=== PATIENT | female | born 1965 | race Caucasian/White ===

== ENCOUNTER → 2018-08-03 | Outpatient (CLI) | payer OTHER ==
--- NOTE | 2018-08-03 11:51 | RAD ---
EXAM DESCRIPTION: Abdomen Flat Upright CLINICAL HISTORY: ABD PAIN COMPARISON: None. TECHNIQUE: AP supine and upright abdomen FINDINGS: The bowel gas pattern is unremarkable. No evidence of free intraperitoneal air is seen. No organomegaly is detected. No pathologic calcifications are observed. IMPRESSION: Normal abdomen. Electronically signed by: Peewee Guardado MD 08/03/2018 11:49 AM [facility]
== END ==
LOC: LAB.O 10:21
PROVIDERS: ATTEND Nurse Practitioner Family
DX: R10.9 Unspecified abdominal pain (principal)

== ENCOUNTER 2020-09-27 10:42 | Emergency (ER) | payer OTHER ==
[2020-09-27] MEDS ORDERED: PROMETHAZINE HCL INJ 25 MG in SODIUM CHLORIDE 0.9% 50ML 50 ML IVPB ONE (11:00)
--- NOTE | 2020-09-27 11:23 | RAD ---
EXAM DESCRIPTION: Forearm,Right CLINICAL HISTORY: suspect fracture after fall COMPARISON: None. IMPRESSION: 2 views of the right forearm show comminuted intra-articular fracture of the distal radius with one half shaft width dorsal and proximal displacement of the distal fracture fragment. Fracture extends to the articular surface. Consider further evaluation with 3 views of the right wrist for more detailed evaluation of the fracture. Suspect mildly displaced ulnar styloid avulsion fracture is well. No fracture or dislocation of the proximal forearm. Electronically signed by: Brannon Casey MD 09/27/2020 11:22 AM [facility]
[2020-09-27] MEDS ORDERED: LIDOCAINE 1% 50 ML VIAL INJ ONE (11:36)
--- NOTE | 2020-09-27 13:24 | RAD ---
EXAM DESCRIPTION: Wrist,Right 3 Views CLINICAL HISTORY: 55 years, Female, post reduction COMPARISON: Previous x-rays of the right forearm earlier same day FINDINGS: Right wrist 3 x-ray views is positive for comminuted impacted fracture of the distal radial metaphysis and epiphysis with fracture through the ulnar styloid base. Markedly improved alignment compared to previous study. Dorsal tilt of the radial articular surface approximately 30 degrees. The lunate and radial articular surface remain aligned. Fracture extends into the radiocarpal joint. Cast material obscures bony detail. Carpal relationships are well-maintained. Distal radius and ulna appear intact. Normal metacarpals. No significant arthritic changes are observed. IMPRESSION: Improved fracture alignment on casted views of the right wrist Electronically signed by: Demetrio Marques MD 09/27/2020 1:22 PM [facility]
--- NOTE | 2020-09-27 13:47 | ED.PDOC ---
History of Present Illness - General Chief Complaint: Trauma Stated Complaint: right arm pain after fall Time Seen by Provider: 09/27/20 10:43 Source: patient Exam Limitations: no limitations - History of Present Illness Initial Comments: The patient is a 55-year-old female presented emergency room secondary to having fallen on outstretched right arm. The patient has a deformity just proximal to the wrist. She does appear to be neurovascularly at her baseline. Radial pulses palpable. She is able to wiggle her fingers. Capillary refill is within normal limits. The patient does rings on the third and fourth digits which she refuses to allow me to remove or cut off. There is no swelling distally at this point. The wound rings are loose except they will not pass the joints. No other injuries. She is in significant pain. She did have something to drink about an hour prior to arrival. Timing/Duration: 1/2 hour Severity: severe Improving Factors: immobilization Worsening Factors: movement Associated Symptoms: denies symptoms Allergies/Adverse Reactions: Allergies Latex Allergy (Verified 09/27/20 10:54) Penicillin G Allergy (Verified 09/27/20 10:54) Home Medications: Ambulatory Orders Levothyroxine Sodium [Synthroid] 0.15 mg PO 0700 05/19/14 Tramadol HCl 50 mg PO Q8HR PRN 7 Days #20 tab 09/27/20 Tramadol HCl 50 mg PO Q8HR PRN 7 Days #20 tab 09/27/20 Review of Systems - Review of Systems Constitutional: States: no symptoms reported EENTM: States: no symptoms reported Respiratory: States: no symptoms reported Cardiology: States: no symptoms reported Gastrointestinal/Abdominal: States: no symptoms reported Genitourinary: States: no symptoms reported Musculoskeletal: States: see HPI Skin: States: no symptoms reported Neurological: States: no symptoms reported Endocrine: States: no symptoms reported All other Systems: No Change from Baseline Past Medical History (General) - Patient Medical History Hx Seizures: No Hx Stroke: No Hx Dementia: No Hx Asthma: No Hx of COPD: No 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% Hx Congestive Heart Failure: No Hx Pacemaker: No Hx Hypertension: Yes Hx Thyroid Disease: Yes - hypo Hx Diabetes: No Hx Gastroesophageal Reflux: No Hx Renal Disease: No Hx Cancer: No Hx of HIV: No Hx Hepatitis C: No Hx MRSA: No - Vaccination History Hx Tetanus, Diphtheria Vaccination: Yes Hx Influenza Vaccination: No Hx Pneumococcal Vaccination: No - Social History Hx Tobacco Use: Yes Hx Chewing Tobacco Use: No Hx Alcohol Use: No Hx Substance Use: No Hx Substance Use Treatment: No Hx Depression: No Hx Physical Abuse: No Hx Emotional Abuse: No Hx Suspected Abuse: No - Female History Patient is a Female of Child Bearing Age (10 -59 yrs old): No Patient : No Family Medical History - Family History Mother Family History: No Known Physical Exam - Physical Exam General Appearance: Alert Eye Exam: bilateral normal Ears, Nose, Throat: hearing grossly normal, normal pharynx Neck: full range of motion, supple Respiratory: lungs clear, normal breath sounds, no respiratory distress, no accessory muscle use Cardiovascular/Chest: normal peripheral pulses, regular rate, rhythm, no edema Peripheral Pulses: radial,right: 2+, radial,left: 2+ Gastrointestinal/Abdominal: non tender, soft Rectal Exam: deferred Extremity: no pedal edema, no calf tenderness, normal capillary refill, other - See history of present illness. Neurologic: backup operator II-XII nml as tested, alert, normal mood/affect, oriented x 3 Skin Exam: normal color Comments: Vital Signs - 24 hr 09/27/20 10:50 Temperature 96.4 F L Pulse Rate [ 86 monitor] Respiratory 22 Rate Blood Pressure 166/90 [LA] O2 Sat by Pulse 99 Oximetry Progress - Progress Progress: 09/27/20 13:48 The patient is a 55-year-old female presented emergency room secondary to having fallen on the right wrist. She sustained a distal radius and ulna fracture that is intra-articular. After risk and benefits were explained the patient agreed to a hematoma block after which we were able to reduce the fracture adequately. 10 cc of lidocaine without epinephrine were used. Casting was done subsequently with bivalving for immobilization. Postreduction films are adequate. The patient needs to follow-up with Dr. Beach within the next week for further evaluation for probable surgical correction. The patient will be written for tramadol for as needed use for pain control. ER warnings are given for any worsening. shahid arias [id number] R D MANAGER aware consulted through prescribing program - Results/Orders Results/Orders: X-ray of the right wrist shows a proximal radius fracture as well as an ulnar styloid fracture. There is significant angulation. Postreduction films does show improvement. It is an intra-articular fracture. It is a closed fracture. Departure - Departure Clinical Impression: Wrist fracture, closed Qualifiers: Encounter type: initial encounter Laterality: right Qualified Code(s): S62.101A - Fracture of unspecified carpal bone, right wrist, initial encounter for closed fracture Disposition: Discharge to Home or Self Care Condition: Fair Departure Forms: ED Discharge - Pt. Copy, Patient Portal Self Enrollment Instructions: DI for Trauma, Wrist Fracture (DC) Diet: regular diet Activity: no pushing/pulling with affected limb Referrals: [facility]INGO RESENDE[facility] [Primary Care Provider] - 1-2 Weeks Prescriptions: Tramadol HCl 50 mg PO Q8HR PRN 7 Days #20 tab PRN Reason: Moderate Pain Tramadol HCl 50 mg PO Q8HR PRN 7 Days #20 tab PRN Reason: Moderate Pain Home Medications: Ambulatory Orders Levothyroxine Sodium [Synthroid] 0.15 mg PO 0700 05/19/14 Tramadol HCl 50 mg PO Q8HR PRN 7 Days #20 tab 09/27/20 Tramadol HCl 50 mg PO Q8HR PRN 7 Days #20 tab 09/27/20 Additional Instructions: The patient is a 55-year-old female presented emergency room secondary to having fallen on the right wrist. She sustained a distal radius and ulna fracture that is intra-articular. Reduction was done under hematoma block. Casting was done subsequently with bivalving for immobilization. Postreduction films are adequate. The patient needs to follow-up with Dr. Beach within the next week for further evaluation for probable surgical correction. The patient will be written for tramadol for as needed use for pain control. ER warnings are given for any worsening.
[2020-09-27 14:29] VITALS: BP 129/80; TEMP 97.5; O2SAT 97
== END 2020-09-27 14:25 | disposition home or self-care (01) ==
LOC: ER 10:42
DX: S52.501A Unspecified fracture of the lower end of right radius, initial encounter for closed fracture (principal); S52.611A Displaced fracture of right ulna styloid process, initial encounter for closed fracture; I51.9 Heart disease, unspecified; I10 Essential (primary) hypertension; E03.9 Hypothyroidism, unspecified; Z87.891 Personal history of nicotine dependence; Z79.899 Other long term (current) drug therapy; Z88.0 Allergy status to penicillin; Z91.040 Latex allergy status; W19.XXXA Unspecified fall, initial encounter; Y92.9 Unspecified place or not applicable
CPT/HCPCS: 73090; 73110; A4216; J2550

== ENCOUNTER → 2020-10-12 | Outpatient (CLI) | payer OTHER ==
--- NOTE | 2020-10-13 15:12 | RAD ---
EXAM: Wrist,Right 3 Views INDICATION: 55 years Female, PAIN COMPARISON: 3 views of the right wrist 09/27/2020 FINDINGS: 3 views of the right wrist were performed. Similar appearance of the wrist when compared to the prior study of 09/27/2020. Redemonstrated fractures of the distal radius and ulnar styloid process. No significant bony callus formation since the prior study. Alignment is stable from the prior exam. Soft tissue edema. Overlying cast material. No joint dislocation. No new fracture is identified. IMPRESSION: Similar appearance of distal right radial and ulnar fractures when compared to the prior postreduction wrist radiographs of 09/27/2020. Electronically signed by: Grisel Azul MD 10/13/2020 3:11 PM [facility]
== END ==
LOC: RAD 09:04
PROVIDERS: ATTEND Orthopaedic Surgery
DX: S52.501D Unspecified fracture of the lower end of right radius, subsequent encounter for closed fracture with routine healing (principal); S52.611D Displaced fracture of right ulna styloid process, subsequent encounter for closed fracture with routine healing